=== PATIENT | male | born 1950 | race Caucasian/White ===

== ENCOUNTER 2016-08-02 21:50 | Emergency (ER) | payer OTHER ==
[~2016-08-02] VITALS: Ht 180.3 cm; Wt 95.3 kg
[~2016-08-02 21:50] MED LIST: AMLODIPINE BESY PO; ASPIR 8181 MG PO; ATORVASTATIN CA40 MG PO; BENADRYL ALLERG25 M1 PO; IBUPROFEN800 MG PO; LIDEX0.05 %/15 TOP; LOPRESSOR 12.12.5 MG PO; MULTIVITAMIN1 TAB PO; NITROSTAT 0.4MG1 BO2 SL; ZOFRAN4 M1 PO
[2016-08-02 21:58] VITALS: BP 148/79
--- NOTE | 2016-08-02 22:10 | ED MVC/FALL/TRAUMA COMPLAINT ---
History of Present Illness General Chief Complaint: Fall Stated Complaint: "FELL HIT MY HEAD I THINK I PASSED OUT" Source: patient Exam Limitations: no limitations Vital Signs & Intake/Output Vital Signs & Intake/Output Vital Signs Date Time Temp Pulse Resp B/P Pulse O2 O2 Flow FiO2 Ox Delivery Rate 08/022 100 Room Air 08/02 2157 96.8 86 18 148/79 97 Room Air Allergies Coded Allergies: NO KNOWN ALLERGIES (11/09/11) Reconcile Medications AMLODIPINE/VALSARTAN (Amlodipine-Valsartan 5-320 MG) 5 MG-320 MG TABLET 1 TAB PO DAILY BP (Reported) Aspirin (Ecotrin) 81 MG ECT 1 TAB PO ONCE [facility] Atorvastatin Calcium (Lipitor) 40 MG TAB 1 TAB PO 1700 [facility] DIPHENHYDRAMINE HCL (Benadryl) 25 MG CAPSULE 2 SGL PO ONCE POISON SWATI ( Reported) Fluocinonide (Lidex) 0.05 %/15 GM CRM 1 TOÑO TOP BID rash Ibuprofen 800 MG TABLET 1 TAB PO DAILY ARTHRITIS (Reported) Metoprolol Tartrate (Lopressor) 12.5 MG TAB 1 TAB PO BID blood pressure Multivitamin (Multiple Vitamins) 1 EACH TABLET 1 TAB PO DAILY SUPPLEMENT ( Reported) Nitroglycerin (Nitrostat 0.4MG S\\L Tab) 1 BOT BOT 0.4 MG SL Q 5 MINUTES X 3 DOSE PRN CHEST PAIN Triage Nurses Notes Reviewed? yes Onset: Abrupt Duration: hour(s): (COUPLE) Timing: recent history Severity: moderate, severe Injuries/Fall Location: head, neck Method of Injury: fall Loss of Consciousness: unsure No Modifying Factors: none HPI: 65-year-old male comes into emergency room for further evaluation of headache and neck pain after slipping and falling in the snow outside and hitting his head in the back. Questionable loss of consciousness. One episode of vomiting. Denies any further episodes of vomiting but has some associated nausea. Patient feels mildly blurry. Denies any other injury anywhere else other than his neck being sore. (THALIA HOANG) Past History Travel History Traveled to [place] past 21 day No Medical History Any Pertinent Medical History? see below for history Neurological: NONE EENT: NONE Cardiovascular: hypertension, hyperlipidemia Respiratory: NONE Gastrointestinal: NONE Hepatic: NONE Renal: NONE Musculoskeletal: NONE Psychiatric: NONE Endocrine: NONE Blood Disorders: NONE Cancer(s): NONE REAL ESTATE SALESPERSON/Reproductive: NONE History of MRSA: No History of VRE: No History of CDIFF: No Tetanus Vaccine: 03/30/12 Surgical History Surgical History: non-contributory Psychosocial History Who do you live with Patient/Self Services at Home None What is your primary language Georgian Tobacco Use: Never used ETOH Use: occasional use Illicit Drug Use: denies illicit drug use Family History Hx Contributory? No (THALIA HOANG) Review of Systems Review of Systems Constitutional: Reports: no symptoms. Eyes: Reports: no symptoms. Ears, Nose, Throat, Mouth: Reports: no symptoms. Respiratory: Reports: no symptoms. Cardiovascular: Reports: no symptoms. Gastrointestinal/Abdominal: Reports: no symptoms. Genitourinary: Reports: no symptoms. Musculoskeletal: Reports: see HPI. Skin: Reports: no symptoms. Neurological/Psychological: Reports: see HPI. All Other Systems: Reviewed and Negative (THALIA HOANG) Physical Exam Physical Exam General Appearance: well developed/nourished, no apparent distress, alert Head: atraumatic, normal appearance Eyes: Bilateral: normal appearance, PERRL, EOMI, normal inspection. Ears, Nose, Throat, Mouth: hearing grossly normal, moist mucous membrane Neck: normal inspection, supple, full range of motion, normal alignment Respiratory: normal breath sounds, no respiratory distress Cardiovascular: regular rate/rhythm Back: normal inspection Extremities: normal range of motion Neurologic/Psych: no motor/sensory deficits, awake, alert, oriented x 3, normal gait, normal mood/affect Skin: intact, normal color Core Measures ACS in differential dx? No Severe Sepsis Present: No Septic Shock Present: No (THALIA HOANG) Progress Differential Diagnosis: abd injury, C/T/L spine injury, ext injury, ICH, pelvis injury, pnemothorax, spinal cord injury, CONCUSSION, INTRACRANIAL BLEED, Plan of Care: Orders Procedure Date/time Status CT HEAD WO IV CONTRAST 08/[address] CERV SPINE WO IV CONTRAST 08/02 2208 Active Diagnostic Imaging: Viewed by Me: CT Scan. Discussed w/RAD: CT Scan. Radiology Impression: SERVICE DATE: 08/02/16 EXAM TYPE: CAT - CT CERV SPINE WO IV CONTRAST EXAMINATION: CT CERVICAL SPINE WITHOUT CONTRAST CLINICAL INFORMATION: Trauma. COMPARISON: None. TECHNIQUE: Axial images obtained through cervical spine. Coronal and sagittal reformatted images performed at CT scanner FINDINGS: No fracture. No subluxation. No prevertebral soft tissue swelling. Degenerative change of the cervical spine. Cervical disc height narrowing C5-C6 and C6-C7 with endplate spurs. There is degenerative arthrosis at the facet joints from C2-C3 , C7-T1. There is bony fusion of the facet joints between C2 and C3 bilaterally. IMPRESSION: No acute abnormality. Degenerative disc disease of cervical spine. DICTATED BY: DENISA WHITFIELD MD DATE/TIME DICTATED:08/02/162241 AEROSPACE PROJECT ENGINEER:AMALIA DATE/TIME TRANSCRIBED:08/02/162241 Comments: 08/02/2016 11:29:09 PM No evidence of acute trauma. Follow-up with primary care doctor. Return if any other concerns. (BURT RAMSEY,THALIA) Departure Departure Disposition: HOME OR SELF CARE Condition: Stable Clinical Impression Primary Impression: Concussion Secondary Impressions: Cervical strain Referrals: TORRI GILBERT,PRANAY Diaz (PCP/Family) Additional Instructions: Follow-up with your primary care doctor. Return to emergency room immediately if any other concerns worsening symptoms. Please go over all results of today's visit with your primary care doctor. Contact your primary care doctor to let them know you were here in the emergency room. There may be nonspecific findings which may not be related to your visit today here in the emergency room but may require further evaluation and chronic monitoring by your primary care doctor. If you had a laceration today the chance of foreign body always remains. You should follow-up with your primary care doctor for recheck in 3-5 days for a wound check. If you had an x-ray done there is a chance that a fracture could have been missed on initial read and you should follow-up with your primary care doctor for repeat x-rays if symptoms persist. If your blood pressure was elevated here in the emergency room please have rechecked by her primary care doctor within the next 48 hours by your primary care doctor. If you were prescribed a narcotic here in the emergency room or any type of controlled substances you're not allowed to drive while taking this medication or operate any type of heavy machinery. Narcotics can make you feel lightheaded dizziness nausea and can cause constipation. You may need to knot picker cloth a stool softener. Thank you for choosing [facility] emergency room. Please return to the emergency room immediately if you have any other concerns worsening of symptoms. Departure Forms: Customer Survey General Discharge Information (THALIA HOANG) PA/STRUCTURES TECHNICIAN Co-Sign Statement Statement: ED Attending supervision documentation- [X] I saw and evaluated the patient. I have also reviewed all the pertinent lab results and diagnostic results. I agree with the findings and the plan of care as documented in the PA's/STRUCTURES TECHNICIAN's documentation. [X] I have reviewed the ED Record and agree with the PA's/STRUCTURES TECHNICIAN's documentation. [] Additions or exceptions (if any) to the PAs/STRUCTURES TECHNICIAN's note and plan are summarized below: [] (ARTIE GILBERT,AAMIR Carmona)
--- NOTE | 2016-08-02 22:45 | CT SCAN REPORT ---
EXAMINATION: CT HEAD WITHOUT CONTRAST CLINICAL INFORMATION: Trauma. Headache. Loss of consciousness. COMPARISON: CT head 12/31/2014 TECHNIQUE: Contiguous axial imaging was performed from the skull base to vertex without intravenous administration of contrast. Coronal reformatted images performed at CT scanner FINDINGS: There is no evidence of acute intracranial hemorrhage or territorial infarction. No abnormal mass-effect or midline shift is seen. Ritter to white matter differentiation is well preserved. No extra-axial fluid collections are identified. There is vascular calcification of the internal carotid arteries bilaterally. The ventricles are normal in size. There is no abnormal attenuation within the brain parenchyma. There is sinus mucosal thickening in the ethmoid sinuses and the maxillary sinuses bilaterally. The mastoid air cells and middle ear cavities are normally aerated. IMPRESSION: No acute intracranial pathology.
--- NOTE | 2016-08-02 22:48 | CT SCAN REPORT ---
EXAMINATION: CT CERVICAL SPINE WITHOUT CONTRAST CLINICAL INFORMATION: Trauma. COMPARISON: None. TECHNIQUE: Axial images obtained through cervical spine. Coronal and sagittal reformatted images performed at CT scanner FINDINGS: No fracture. No subluxation. No prevertebral soft tissue swelling. Degenerative change of the cervical spine. Cervical disc height narrowing C5-C6 and C6-C7 with endplate spurs. There is degenerative arthrosis at the facet joints from C2-C3 , C7-T1. There is bony fusion of the facet joints between C2 and C3 bilaterally. IMPRESSION: No acute abnormality. Degenerative disc disease of cervical spine.
== END 2016-08-02 22:59 ==
LOC: ERH 21:50
DX: S16.1XXA Strain of muscle, fascia and tendon at neck level, initial encounter (principal); S06.0X9A Concussion with loss of consciousness of unspecified duration, initial encounter; W00.0XXA Fall on same level due to ice and snow, initial encounter